=== PATIENT | male | born 1980 | race Caucasian/White ===

== ENCOUNTER 2018-01-19 20:37 | Emergency (ER) | payer MEDICAID, OTHER ==
[~2018-01-19] VITALS: Ht 167.6 cm; Wt 80.0 kg
[~2018-01-19 20:37] MED LIST: DIVA250T4 PO; QUET200T PO; RISP2 PO; RISP3 PO; VITAD1000 PO
[2018-01-19] MEDS ORDERED: CLOT15CR62 TP (20:55)
[2018-01-19] MEDS ORDERED: DOXY100C40 PO (20:55)
[2018-01-20 00:25] VITALS: BP 130/76
[2018-01-20] MEDS ORDERED: IBUPROFEN 600 MG TABLET PO ONE (00:30)
[2018-01-20] MEDS ORDERED: DIVA-78 PO (19:24)
== END 2018-01-20 00:34 | disposition home or self-care (01) ==
LOC: EMS 20:38
DX: S90.812A Abrasion, left foot, initial encounter (principal); S90.811A Abrasion, right foot, initial encounter; F20.9 Schizophrenia, unspecified; F84.0 Autistic disorder; Z79.899 Other long term (current) drug therapy; X58.XXXA Exposure to other specified factors, initial encounter; Y93.89 Activity, other specified; Y92.89 Other specified places as the place of occurrence of the external cause; Y99.8 Other external cause status
CPT/HCPCS: 99282; 99283

== ENCOUNTER 2018-01-20 19:05 | Inpatient (IN) | payer MEDICAID, OTHER ==
[~2018-01-20] VITALS: Ht 167.6 cm; Wt 77.0 kg
[~2018-01-20 19:05] MED LIST changes: +CLOT15CR62 TP; +DOXY100C40 PO
[2018-01-20] MEDS ORDERED: DIVA-78 PO (19:24)
[2018-01-20 19:30] VITALS: BP 120/88
[2018-01-20] MEDS ORDERED: LORazepam 2 MG/ML VIAL IM ONE (19:30)
[2018-01-20] MEDS ORDERED: ZOLPIDEM TARTRATE 10 MG TABLET PO PRN (19:30)
[2018-01-20] MEDS ORDERED: DiphenhydrAMINE HCL 50 MG/ML VIAL IM ONE (19:30)
[2018-01-20] MEDS ORDERED: LORazepam 2 MG/ML VIAL ONE (19:49)
[2018-01-20] MEDS ORDERED: DiphenhydrAMINE HCL 50 MG/ML VIAL ONE (19:49)
[2018-01-20] MEDS: BENZTROPINE MESYLATE 1 MG TABLET PO SCH (20:38)
[2018-01-20] MEDS ORDERED: CloNIDine HCL 0.1 MG TABLET PO PRN (21:30)
[2018-01-20] MEDS ORDERED: BENZOCAINE/MENTHOL LOZENGE MM PRN (21:30)
[2018-01-20] MEDS ORDERED: MAG HYDROX/AL HYDROX/SIMETH ES 30 ML SUSPENSION UDCUP PO PRN (21:30)
[2018-01-20] MEDS ORDERED: PETROLATUM,WHITE 71 GM JELLY TP PRN (21:30)
[2018-01-20] MEDS ORDERED: LOPERAMIDE HCL 2 MG CAPSULE PO PRN (21:30)
[2018-01-20] MEDS ORDERED: BACITRACIN 28.4 GM OINTMENT TP PRN (21:30)
[2018-01-20] MEDS ORDERED: ACETAMINOPHEN 325 MG TABLET PO PRN (21:30)
[2018-01-20] MEDS ORDERED: IBUPROFEN 600 MG TABLET PO PRN (21:30)
[2018-01-20] MEDS ORDERED: MAGNESIUM HYDROXIDE SUSPENSION 30 ML UDCUP PO PRN (21:30)
[2018-01-20] MEDS ORDERED: ONDANSETRON HCL 4 MG TABLET PO PRN (21:30)
[2018-01-20] MEDS ORDERED: ALBUTEROL SULFATE HFA 90 MCG/PUFF 8 GM INHALER IH PRN (21:30)
[2018-01-21 01:17] VITALS: BP 121/77
[2018-01-21 08:55] LABS: BASOPHILS % (AUTO) 0.7 % (0.0-2.0); EOSINOPHILS % (AUTO) 1.9 % (1.0-6.0); HEMATOCRIT 41.8 % (41-53); HEMOGLOBIN 14.1 g/dL (13.5-17.5); LYMPHOCYTES # (AUTO) 2.4 K/uL (1.0-4.8); LYMPHOCYTES % (AUTO) 32.6 % (22.0-44.0); MEAN CORPUSCULAR HEMOGLOBIN 26.8 pg (26.0-34.0); MEAN CORPUSCULAR HGB CONC 33.9 G/dL (31.0-37.0); MEAN CORPUSCULAR VOLUME 79 fL (80-100); MONOCYTES # (AUTO) 0.4 K/uL (0.1-1.0); NEUTROPHILS # (AUTO) 4.2 K/uL (1.8-7.7); NEUTROPHILS % (AUTO) 58.8 % (40.0-70.0); PLATELET COUNT (AUTO) 302 K/uL (150-450); RED BLOOD CELL COUNT(AUTO) 5.27 MIL/uL (4.50-5.90); RED CELL DISTRIBUTION WIDTH 14.2 % (11.5-14.5)
[2018-01-21 09:03] LABS: ALANINE AMINOTRANSFERASE 32 U/L (12-78); ALBUMIN 3.5 g/dL (3.4-5.0); ALKALINE PHOSPHATASE 70 U/L (46-116); ANION GAP 7 mmol/L (8-16); ASPARTATE AMINOTRANSFERASE 24 U/L (15-37); BILIRUBIN,TOTAL 0.6 mg/dL (0.1-1.0); CALCIUM, TOTAL 9.9 mg/dL (8.8-10.5); CARBON DIOXIDE 27 mmol/L (22-29); CHLORIDE 106 mmol/L (98-107); CHOL/HDL RATIO 9.5 (4.2-7.3); CHOLESTEROL 199 mg/dL (131-200); CREATININE 0.94 mg/dL (0.60-1.30); FREE T4 (FREE THYROXINE) 0.81 ng/dL (0.76-1.46); GLOMERULAR FILTR. RATE CALC > 60 mL/min (>60); GLUCOSE,RANDOM 137 mg/dL (70-110); HDL CHOLESTEROL 21 mg/dL (40-60); LDL CHOL (CALC.) 117 mg/dL (0-130); POTASSIUM 3.9 mmol/L (3.5-5.1); SODIUM SERUM 140 mmol/L (136-145); THYROID STIMULATING HORMONE 3.52 uIU/mL (0.36-3.74); TOTAL PROTEIN, SERUM 7.1 g/dL (6.4-8.2); TRIGLYCERIDES 305 mg/dL (15-150); UREA NITROGEN, BLOOD 13 mg/dL (7-18)
[2018-01-21 09:10] VITALS: BP 106/62
[2018-01-21] MEDS: OMEPRAZOLE 20 MG CAPSULE PO SCH (09:15)
[2018-01-21] MEDS: BENZTROPINE MESYLATE 1 MG TABLET PO SCH ×2 (09:15→16:10)
[2018-01-21] MEDS: DOCUSATE SODIUM 100 MG CAPSULE PO SCH (09:15)
[2018-01-21] MEDS: CHOLECALCIFEROL (VIT D3) 1,000 UNITS TABLET PO SCH (09:15)
[2018-01-21 16:00] VITALS: BP 132/76
[2018-01-21] MEDS: LORazepam 2 MG TABLET PO PRN (16:10)
[2018-01-21] MEDS: HALOPERIDOL 5 MG TABLET PO PRN (16:10)
[2018-01-22 00:24] VITALS: BP 104/65
[2018-01-22 08:17] VITALS: BP 124/68
[2018-01-22] MEDS ORDERED: BENZTROPINE MESYLATE 1 MG TABLET PO SCH (09:00)
[2018-01-22] MEDS: BENZTROPINE MESYLATE 1 MG TABLET PO SCH ×2 (09:04→16:56)
[2018-01-22] MEDS: DOCUSATE SODIUM 100 MG CAPSULE PO SCH (09:04)
[2018-01-22] MEDS: DIVALPROEX SODIUM 500 MG DR TABLET PO SCH ×2 (09:04→16:56)
[2018-01-22] MEDS: OMEPRAZOLE 20 MG CAPSULE PO SCH (09:04)
[2018-01-22] MEDS: CHOLECALCIFEROL (VIT D3) 1,000 UNITS TABLET PO SCH (09:04)
[2018-01-22] MEDS: OMEGA-3/DHA/EPA/FISH OIL 1,000 MG CAPSULE PO SCH (09:04)
[2018-01-22] MEDS: BACITRACIN 28.4 GM OINTMENT TP SCH ×2 (09:05→16:55)
[2018-01-22 16:00] VITALS: BP 114/76
[2018-01-22] MEDS: HALOPERIDOL 5 MG TABLET PO PRN (16:56)
[2018-01-22] MEDS: LORazepam 2 MG TABLET PO PRN (16:56)
[2018-01-23 01:40] VITALS: BP 123/81
[2018-01-23 08:11] VITALS: BP 113/58
[2018-01-23] MEDS ORDERED: MAGNESIUM SULFATE 454 GM BOX TP SCH (09:00)
[2018-01-23] MEDS: CHOLECALCIFEROL (VIT D3) 1,000 UNITS TABLET PO SCH (09:14)
[2018-01-23] MEDS: OMEPRAZOLE 20 MG CAPSULE PO SCH (09:15)
[2018-01-23] MEDS: BACITRACIN 28.4 GM OINTMENT TP SCH (09:15)
[2018-01-23] MEDS: DIVALPROEX SODIUM 500 MG DR TABLET PO SCH (09:15)
[2018-01-23] MEDS: DOCUSATE SODIUM 100 MG CAPSULE PO SCH (09:15)
[2018-01-23] MEDS: BENZTROPINE MESYLATE 1 MG TABLET PO SCH (09:15)
[2018-01-23] MEDS: OMEGA-3/DHA/EPA/FISH OIL 1,000 MG CAPSULE PO SCH (10:10)
[2018-01-23] MEDS ORDERED: OMEP20 PO (12:37)
[2018-01-23] MEDS ORDERED: DSS100 PO (12:37)
[2018-01-23] MEDS ORDERED: VITAD1000 PO (12:37)
[2018-01-23] MEDS ORDERED: OMEG-135 PO (12:37)
[2018-01-23] MEDS ORDERED: BENZ1TAB10 PO (21:40)
[2018-01-23] MEDS ORDERED: IBUP-2070 PO (21:40)
== END 2018-01-23 12:00 | disposition home or self-care (01) | DRG 750 ==
LOC: B3A 19:23
PROVIDERS: ADMIT Psychiatry & Neurology Psychiatry; ATTEND Psychiatry & Neurology Psychiatry
DX: F20.0 Paranoid schizophrenia (principal); E78.1 Pure hyperglyceridemia; K59.00 Constipation, unspecified; S90.511A Abrasion, right ankle, initial encounter; X58.XXXA Exposure to other specified factors, initial encounter; S90.512A Abrasion, left ankle, initial encounter; R41.89 Other symptoms and signs involving cognitive functions and awareness; Z79.899 Other long term (current) drug therapy; Y93.89 Activity, other specified; Y92.89 Other specified places as the place of occurrence of the external cause; Y99.8 Other external cause status
CPT/HCPCS: 83036; 84439; 84443; J1200; J2060

== ENCOUNTER 2018-01-23 16:27 | Emergency (ER) | payer MEDICAID, OTHER ==
[~2018-01-23] VITALS: Ht 172.7 cm; Wt 77.3 kg
[~2018-01-23 16:27] MED LIST changes: +DIVA-78 PO; -DIVA250T4 PO; +DSS100 PO; +OMEG-135 PO; +OMEP20 PO
[2018-01-23 18:26] LABS: BASOPHILS % (AUTO) 0.9 % (0.0-2.0); EOSINOPHILS % (AUTO) 0.8 % (1.0-6.0); HEMATOCRIT 43.3 % (41-53); HEMOGLOBIN 14.7 g/dL (13.5-17.5); LYMPHOCYTES # (AUTO) 2.1 K/uL (1.0-4.8); LYMPHOCYTES % (AUTO) 22.9 % (22.0-44.0); MEAN CORPUSCULAR HEMOGLOBIN 26.4 pg (26.0-34.0); MEAN CORPUSCULAR VOLUME 78 fL (80-100); MONOCYTES # (AUTO) 0.6 K/uL (0.1-1.0); NEUTROPHILS # (AUTO) 6.5 K/uL (1.8-7.7); NEUTROPHILS % (AUTO) 69.4 % (40.0-70.0); PLATELET COUNT (AUTO) 299 K/uL (150-450); RED BLOOD CELL COUNT(AUTO) 5.58 MIL/uL (4.50-5.90); RED CELL DISTRIBUTION WIDTH 13.8 % (11.5-14.5)
[2018-01-23 18:36] LABS: ANION GAP 7 mmol/L (8-16); CALCIUM, TOTAL 9.9 mg/dL (8.8-10.5); CARBON DIOXIDE 28 mmol/L (22-29); CHLORIDE 100 mmol/L (98-107); GLOMERULAR FILTR. RATE CALC > 60 mL/min (>60); GLUCOSE,RANDOM 99 mg/dL (70-110); POTASSIUM 3.8 mmol/L (3.5-5.1); SODIUM SERUM 135 mmol/L (136-145); UREA NITROGEN, BLOOD 17 mg/dL (7-18)
[2018-01-23 18:42] LABS: ALANINE AMINOTRANSFERASE 37 U/L (12-78); ALKALINE PHOSPHATASE 73 U/L (46-116); ASPARTATE AMINOTRANSFERASE 23 U/L (15-37); BILIRUBIN,TOTAL 0.8 mg/dL (0.1-1.0); TOTAL PROTEIN, SERUM 8.2 g/dL (6.4-8.2); VALPROIC ACID 64 mcg/mL (50-100)
[2018-01-23 20:24] VITALS: BP 114/66
[2018-01-23 21:02] LABS: AMPHET/METH SCREEN,URINE NEGATIVE (NEGATIVE); BARBITURATE SCREEN, URINE NEGATIVE (NEGATIVE); BENZODIAZEPINES SCREEN,URINE NEGATIVE (NEGATIVE); CANNABINOID SCREEN,URINE NEGATIVE (NEGATIVE); COCAINE SCREEN,URINE NEGATIVE (NEGATIVE); METHADONE SCREEN, URINE NEGATIVE (NEGATIVE); OPIATE SCREEN,URINE NEGATIVE (NEGATIVE); PHENCYCLIDINE SCREEN,URINE NEGATIVE (NEGATIVE)
[2018-01-23] MEDS ORDERED: BENZ1TAB10 PO (21:40)
[2018-01-23] MEDS ORDERED: IBUP-2070 PO (21:40)
[2018-01-23] MEDS ORDERED: LORazepam 2 MG TABLET PO ONE (22:00)
== END 2018-01-23 22:16 | disposition home or self-care (01) ==
LOC: EMS 16:28
DX: F25.9 Schizoaffective disorder, unspecified (principal)
CPT/HCPCS: 36415; 80053; 80164; 80307; 85025; 99284; G0480